=== PATIENT | male | born 1965 | race Caucasian/White ===

== ENCOUNTER 2023-03-27 10:06 | Emergency (ER) | payer SELFPAY ==
[2023-03-27] MEDS ORDERED: Orphenadrine Citrate 60 MG/2 ML VIAL ONE (10:34)
== END 2023-03-27 10:49 | disposition home or self-care (01) ==
LOC: MADERS 10:06
DX: M53.3 Sacrococcygeal disorders, not elsewhere classified (principal); M54.50 Low back pain, unspecified; X50.0XXA Overexertion from strenuous movement or load, initial encounter; Y93.F2 Activity, caregiving, lifting
CPT/HCPCS: 96372; 99283; J2360